=== PATIENT | female | born 1995 | race Hispanic/Latino ===

== ENCOUNTER 2019-02-06 15:14 | Emergency (ER) | payer MEDICAID ==
[~2019-02-06 15:14] MED LIST: PREN-114 PO; PREN-196 PO
[2019-02-06 15:42] LABS: APPEARANCE,URINE CLEAR (CLEAR); BILIRUBIN,URINE NEGATIVE (NEGATIVE); COLOR,URINE YELLOW (YELLOW); GLUCOSE, URINE (UA) NEGATIVE (NEGATIVE); KETONES,URINE NEGATIVE (NEGATIVE); LEUKOCYTE ESTERASE ,URINE MODERATE (NEGATIVE); NITRATE,URINE NEGATIVE (NEGATIVE); OCCULT BLOOD,URINE TRACE-INTACT (NEGATIVE); PROTEIN,URINE NEGATIVE (NEGATIVE); UROBILINOGEN,URINE 0.2 mg/dL (0.2-1.0)
[2019-02-06 15:45] LABS: HCG,QUAL RESULT NEGATIVE (NEGATIVE)
[2019-02-06 15:49] LABS: BACTERIA,URINE Rare /HPF (None Seen); RBC,URINE 0-1 /HPF (0-1); SQUAMOUS EPITHELIAL CELL,UR Few /HPF (0-2)
[2019-02-06] MEDS ORDERED: DICYCLOMINE HCL 20 MG TAB ONE (15:51)
[2019-02-06] MEDS ORDERED: ONDANSETRON ODT 4 MG TAB ONE (15:51)
[2019-02-06] MEDS ORDERED: SIMETHICONE 80 MG TAB.CHEW ONE (15:51)
== END 2019-02-06 16:32 | disposition home or self-care (01) ==
LOC: EDH 15:14
DX: R11.2 Nausea with vomiting, unspecified (principal); R19.7 Diarrhea, unspecified; F41.9 Anxiety disorder, unspecified; F31.9 Bipolar disorder, unspecified; F20.9 Schizophrenia, unspecified; J45.909 Unspecified asthma, uncomplicated; Z90.49 Acquired absence of other specified parts of digestive tract
CPT/HCPCS: 81001; 81025

== ENCOUNTER 2019-10-03 14:25 | Emergency (ER) | payer MEDICAID ==
[2019-10-03] MEDS ORDERED: ACETAMINOPHEN EXTRA STRENGTH 500 MG TABLET ONE (15:21)
[2019-10-03 15:40] LABS: APPEARANCE,URINE Clear (CLEAR); BILIRUBIN,URINE Negative (NEGATIVE); COLOR,URINE Yellow (YELLOW); GLUCOSE, URINE (UA) Negative (NEGATIVE); KETONES,URINE Negative (NEGATIVE); LEUKOCYTE ESTERASE ,URINE Negative (NEGATIVE); NITRATE,URINE Negative (NEGATIVE); OCCULT BLOOD,URINE Trace (NEGATIVE); PH,URINE 6.5 (5.0-8.0); PROTEIN,URINE Negative (NEGATIVE); UROBILINOGEN,URINE 0.2 mg/dL (0.2-1.0)
[2019-10-03 15:46] LABS: HCG,QUAL RESULT NEGATIVE (NEGATIVE)
[2019-10-03 16:09] LABS: BACTERIA,URINE Few /HPF (None Seen); MUCUS,URINE Few LPF (None Seen); SQUAMOUS EPITHELIAL CELL,UR Few /HPF (0-2); TRANSITIONAL EPI CELLS,URINE Few /HPF (None Seen)
[2019-10-03 16:10] LABS: RAPID GROUP A STREP NEGATIVE (NEGATIVE)
== END 2019-10-03 16:44 | disposition home or self-care (01) ==
LOC: EDH 14:25
DX: J10.1 Influenza due to other identified influenza virus with other respiratory manifestations (principal); F41.9 Anxiety disorder, unspecified; F32.9 Major depressive disorder, single episode, unspecified; J45.909 Unspecified asthma, uncomplicated; F20.9 Schizophrenia, unspecified
CPT/HCPCS: 81001; 81025; 87804; 87880

== ENCOUNTER 2020-07-27 16:20 | Emergency (ER) | payer MEDICAID | END 2020-07-27 17:57 | disposition home or self-care (01) | LOC: DTH 16:20 | DX: B34.9 Viral infection, unspecified (principal); Z20.828 Contact with and (suspected) exposure to other viral communicable diseases; J45.909 Unspecified asthma, uncomplicated; F20.9 Schizophrenia, unspecified; F41.9 Anxiety disorder, unspecified; F32.9 Major depressive disorder, single episode, unspecified | CPT/HCPCS: 71045; 87426; 99284; U0003 ==

== ENCOUNTER 2021-07-13 10:03 | Emergency (ER) | payer MEDICAID ==
[~2021-07-13] VITALS: Ht 152.4 cm; Wt 79.8 kg
[2021-07-13 10:30] LABS: BASOPHILS % (AUTO) 0.2 % (0.0-5.0); EOSINOPHILS % (AUTO) 1.1 % (0.0-8.0); HEMATOCRIT 37.8 % (36-48); LYMPHOCYTES % (AUTO) 17.4 % (21.0-51.0); MEAN CORPUSCULAR HEMOGLOBIN 28.7 pg (27.0-33.0); MEAN CORPUSCULAR HGB CONC 32.5 g/dL (32.0-36.0); MEAN CORPUSCULAR VOLUME 88.3 fL (79-99); MONOCYTES % (AUTO) 5.1 % (3.0-13.0); NEUTROPHILS % (AUTO) 75.7 % (40.0-77.0); PLATELET COUNT (AUTO) 302 K/uL (130-400); RED BLOOD CELL COUNT(AUTO) 4.28 MIL/uL (4.00-5.50); RED CELL DISTRIBUTION WIDTH 13.2 % (11.0-15.5); WHITE BLOOD COUNT (AUTO) 8.6 K/uL (4.8-10.8)
[2021-07-13 10:44] LABS: CREATININE 0.6 mg/dL (0.5-1.5); POTASSIUM 3.9 mmol/L (3.5-5.1)
[2021-07-13 10:48] LABS: ALBUMIN 3.6 g/dL (3.5-5.0); BILIRUBIN,TOTAL 0.2 mg/dL (0.2-1.0); TOTAL PROTEIN, SERUM 7.2 g/dL (6.0-8.3)
[2021-07-13 10:59] LABS: APPEARANCE,URINE Clear (CLEAR); BILIRUBIN,URINE Negative (NEGATIVE); COLOR,URINE Yellow (YELLOW); GLUCOSE, URINE (UA) Negative (NEGATIVE); KETONES,URINE Negative (NEGATIVE); LEUKOCYTE ESTERASE ,URINE Negative (NEGATIVE); NITRATE,URINE Negative (NEGATIVE); OCCULT BLOOD,URINE Negative (NEGATIVE); PH,URINE 5.5 (5.0-8.0); PROTEIN,URINE Negative (NEGATIVE); UROBILINOGEN,URINE 0.2 mg/dL (0.2-1.0)
[2021-07-13] MEDS ORDERED: KETOROLAC 60 MG VIAL (30MG/ML) IM SCH (12:00)
[2021-07-13 12:39] VITALS: BP 128/80
[2021-07-13] MEDS ORDERED: SENN-216 PO (13:29)
[2021-07-13] MEDS ORDERED: FAMO20TA8 PO (13:29)
== END 2021-07-13 14:26 | disposition home or self-care (01) ==
LOC: EDH 10:03
DX: R10.32 Left lower quadrant pain (principal); Z90.49 Acquired absence of other specified parts of digestive tract; F32.A Depression, unspecified; E07.9 Disorder of thyroid, unspecified
CPT/HCPCS: 36415; 74021; 80053; 81003; 81025; 85025; 96372; 99284; J1885

== ENCOUNTER → 2022-01-15 | Outpatient (CLI) | payer MEDICAID ==
[~2022-01-15] MED LIST changes: +FAMO20TA8 PO; +SENN-216 PO
== END | disposition home or self-care (01) ==
LOC: RAH 14:47
PROVIDERS: ATTEND Otolaryngology Plastic Surgery within the Head & Neck
DX: E04.1 Nontoxic single thyroid nodule (principal)
CPT/HCPCS: 76536

== ENCOUNTER 2025-05-02 08:42 | Day surgery (SDC) | payer MEDICAID ==
[2025-05-02] VITALS (10 sets, daily range): BP systolic 110–131; BP diastolic 74–81; PULSE 75–85; RESP 13–16; TEMP 97–97.2
[~2025-05-02] VITALS: Ht 152.4 cm; Wt 85.3 kg
[~2025-05-02 08:42] MED LIST changes: +BIOT5000 PO; +CALC-1209 PO; +COLE1TAB2 PO; -FAMO20TA8 PO; +FISH OIL; +FOLIC ACID PO; +IRON PO; +LEVO75CA6 PO; +MULT-1290 PO; +OMEP40CA21 PO; -PREN-114 PO; -PREN-196 PO; -SENN-216 PO
[2025-05-02] MEDS ORDERED: LIDOCAINE PF 100MG/5ML (2%) SYRINGE 5ML ONE (09:47)
[2025-05-02] MEDS: 0.9%NACL 1000ML 1,000 ML IV ONE (10:10)
--- NOTE | 2025-05-02 11:12 | NUR ---
Full and complete discharge instructions given to Patient and Family both verbally and in writing. Explained GI procedure precautions and follow up. All questions answered. PIV removed with catheter tip intact. Family at bedside appearing supportive. W/C to POV with Family to home
== END 2025-05-02 11:10 | disposition home or self-care (01) ==
LOC: ENDO 08:42 → DAH 08:42 → ENDO 11:10
PROVIDERS: ATTEND Surgery
DX: R12 Heartburn (principal); K22.89 Other specified disease of esophagus; K31.89 Other diseases of stomach and duodenum; E66.01 Morbid (severe) obesity due to excess calories; K21.9 Gastro-esophageal reflux disease without esophagitis; E03.9 Hypothyroidism, unspecified; Z68.42 Body mass index [BMI] 45.0-49.9, adult; Z90.49 Acquired absence of other specified parts of digestive tract; K76.0 Fatty (change of) liver, not elsewhere classified; D64.9 Anemia, unspecified; Z79.82 Long term (current) use of aspirin; Z79.899 Other long term (current) drug therapy
CPT/HCPCS: 43239; 81025; J7030; J2003; J2704; A4620; A4215 ×2; A4223; A4222; A4221; A4663; A4606; J3490